=== PATIENT | female | born 1985 | race Caucasian/White ===

== ENCOUNTER → 2020-08-26 | Outpatient (CLI) | payer OTHER ==
--- NOTE | 2020-08-26 16:39 | RAD ---
EXAM: OB ULTRASOUND, > 14 WEEKS HISTORY: Size and dates assessment. COMPARISON: None. TECHNIQUE: Multiple grayscale images, color Doppler, and M-mode images of the uterus are obtained. FINDINGS: There is a single intrauterine gestation in variable presentation. The placenta is grade 1 and anteri or in location without evidence of placenta previa. The amount of amniotic fluid appears appropriate. Amniotic fluid index is grossly normal Cervical length is 6.3 cm. Biometrical data: BPD = 5.80 cm for 23 weeks 5 days. HC = 21.50 cm for 23 weeks 4 days. AC = 18.16 cm for 23 weeks 0 days. FL = 4.08 cm for 23 weeks 2 days. HC/AC ratio = 1.1. Overall, the estimated sonographic gestational age is 23 weeks and 3 days for an estimated date of of 12/20/2020. The estimated date of delivery provided by the last menstrual period is August 19, 2020. Estimated weight is 569 grams. This corresponds with the 35th percentile for a gestation al age of weeks and 4 days based on LMP. A 4 chamber heart is identified with positive cardiac activity. The estimated heart rate is 150 beats per minute. Bilateral upper and lower extremities are identified. There is a three-vessel cord with cord insertion visualized. stomach and urinary bladder are identified. Both kidneys are seen. The spine and brain are unremarkable. No obvious anatomic abnormalities are identified. The maternal adnexal regions are unremarkable. IMPRESSION: Single live intrauterine gestation in variable presentation with a normal heart rate and gestational age patient also measurements of 23 weeks and 3 days. The estimated weight is at the 35th perce ntile for a gestational age of 23 weeks and 4 days based on LMP. Unremarkable anatomy survey. Electronically signed by: Meera Myers MD (08/26/2020 4:36 PM) [facility]
== END ==
LOC: US 12:23
PROVIDERS: ATTEND Obstetrics & Gynecology
DX: O26.842 Uterine size-date discrepancy, second trimester (principal); Z3A.23 23 weeks gestation of pregnancy
CPT/HCPCS: 76805